=== PATIENT | male | born 1980 | race Hispanic/Latino ===

== ENCOUNTER 2019-08-30 18:08 | Inpatient (IN) | payer BC, OTHER ==
[~2019-08-30] VITALS: Ht 180.3 cm; Wt 108.1 kg
[2019-08-30] MEDS ORDERED: IOHEXOL 350 MG/ML 100ML INFUS..BTL IV ONE (20:58)
[2019-08-30] MEDS ORDERED: ERGOCALCIFEROL (VITAMIN D2) 50,000 UNIT CAPSULE PO ONE (21:45)
[2019-08-30] MEDS: CEFTRIAXONE SODIUM 1 GM IVP SCH (21:45)
[2019-08-30] MEDS ORDERED: DOXYCYCLINE 100MG+NS 250ML IV SCH (21:45)
[2019-08-30] MEDS ORDERED: ONDANSETRON HCL 4 MG/2 ML VIAL IV PRN (21:45)
[2019-08-30] MEDS ORDERED: ACETAMINOPHEN 325 MG TAB PO PRN ×2 (21:45)
[2019-08-30] MEDS ORDERED: CEFTRIAXONE SODIUM 1 GM ONE (22:05)
[2019-08-30] MEDS ORDERED: METHYLPREDNISOLONE SOD SUCC 40MG/ML 1ML ONE (22:05)
[2019-08-30] MEDS ORDERED: ERGOCALCIFEROL (VITAMIN D2) 50,000 UNIT CAPSULE ONE (22:05)
[2019-08-30] MEDS ORDERED: DOXYCYCLINE HYCLATE 100 MG TABLET PO ONE (22:38)
[2019-08-30] MEDS ORDERED: ALPRAZOLAM 0.25 MG TABLET PO PRN (22:53)
[2019-08-30] MEDS ORDERED: ALPRAZOLAM 0.25 MG TABLET ONE (22:58)
[2019-08-31] MEDS ORDERED: DOXYCYCLINE HYCLATE 100 MG TABLET PO ONE (08:56)
[2019-08-31] MEDS ORDERED: ZINC SULFATE 220 CAPSULE ONE ×2 (08:57→09:15)
[2019-08-31] MEDS ORDERED: METHYLPREDNISOLONE SOD SUCC 40MG/ML 1ML ONE ×3 (08:57→16:31)
[2019-08-31] MEDS ORDERED: ASCORBIC ACID 500 MG TAB ONE ×2 (08:57→09:14)
[2019-08-31] MEDS ORDERED: ENOXAPARIN SODIUM 40 MG/0.4 ML SYRINGE SQ ONE ×2 (08:58→09:15)
[2019-08-31] MEDS ORDERED: FAMOTIDINE/PF 20 MG/2 ML VIAL IV ONE ×2 (08:58→09:16)
[2019-08-31] MEDS ORDERED: CEFTRIAXONE SODIUM 1 GM ONE ×2 (08:58→09:15)
[2019-08-31] MEDS ORDERED: ZINC SULFATE 220 CAPSULE PO SCH (09:00)
[2019-08-31] MEDS: ENOXAPARIN SODIUM 40 MG/0.4 ML SYRINGE SQ SCH (09:00)
[2019-08-31] MEDS: FAMOTIDINE/PF 20 MG/2 ML VIAL IV SCH ×2 (09:00→21:00)
[2019-08-31] MEDS ORDERED: ENOXAPARIN SODIUM 40 MG/0.4 ML SYRINGE SQ SCH (09:00)
[2019-08-31] MEDS: METHYLPREDNISOLONE SOD SUCC 40MG/ML 1ML IVP SCH ×3 (09:00→21:00)
[2019-08-31] MEDS: CEFTRIAXONE SODIUM 1 GM IVP SCH ×2 (09:45→21:45)
[2019-09-01] MEDS: METHYLPREDNISOLONE SOD SUCC 40MG/ML 1ML IVP SCH ×2 (09:00→14:00)
[2019-09-01] MEDS: ASCORBIC ACID 500 MG TAB PO SCH (09:00)
[2019-09-01] MEDS: ENOXAPARIN SODIUM 40 MG/0.4 ML SYRINGE SQ SCH (09:00)
[2019-09-01] MEDS: FAMOTIDINE/PF 20 MG/2 ML VIAL IV SCH (09:00)
[2019-09-01] MEDS: CEFTRIAXONE SODIUM 1 GM IVP SCH (09:45)
[2019-09-01] MEDS ORDERED: ASCORBIC ACID 500 MG TAB ONE (10:43)
[2019-09-01] MEDS ORDERED: ENOXAPARIN SODIUM 60 MG/0.6 ML SQ ONE (10:43)
[2019-09-01] MEDS ORDERED: ZINC SULFATE 220 CAPSULE ONE (10:44)
--- NOTE | 2019-09-01 18:18 | NUR ---
EMERGENCY CONTACTS Sara De La Garza - mother -
--- NOTE | 2019-09-01 18:21 | NUR ---
INITIAL SW spoke with patient. He lives with 16 year old son. Emergency contact is mother, Sara De La Garza, [phone]. No home services. DME: glucometer (no insulin), nebulizer. Patient is able to complete ADL's independently and drives. PCP is Dr. Dale Dillard. Pharmacy is [facility] located on [address] [address] in [place]. DCP is home. Addendum: 09/01/19 at 1822 by ADDIS WALKER SS Amended: Links added.
[2019-09-01] MEDS ORDERED: DOXYCYCLINE HYCLATE 100 MG TABLET PO SCH (21:00)
[2019-09-01] MEDS ORDERED: METHYLPREDNISOLONE SOD SUCC 125MG/2ML VIAL ONE (21:33)
[2019-09-01] MEDS ORDERED: CEFTRIAXONE SODIUM 1 GM ONE (21:33)
[2019-09-01] MEDS ORDERED: FAMOTIDINE/PF 20 MG/2 ML VIAL IV ONE (21:33)
[2019-09-02] MEDS ORDERED: METHYLPREDNISOLONE SOD SUCC 125MG/2ML VIAL ONE (06:21)
[2019-09-02] MEDS: METHYLPREDNISOLONE SOD SUCC 40MG/ML 1ML IVP SCH ×4 (09:00→21:35)
[2019-09-02] MEDS: ASCORBIC ACID 500 MG TAB PO SCH (09:00)
[2019-09-02] MEDS ORDERED: ENOXAPARIN SODIUM 40 MG/0.4 ML SYRINGE SQ ONE (09:08)
[2019-09-02] MEDS ORDERED: ZINC SULFATE 220 CAPSULE ONE (09:08)
[2019-09-02] MEDS ORDERED: ASCORBIC ACID 500 MG TAB ONE (09:08)
[2019-09-02] MEDS ORDERED: FAMOTIDINE/PF 20 MG/2 ML VIAL IV ONE (09:09)
[2019-09-02] MEDS ORDERED: CEFTRIAXONE SODIUM 1 GM ONE (09:09)
[2019-09-02] MEDS ORDERED: DOXYCYCLINE HYCLATE 100 MG TABLET PO ONE (10:50)
[2019-09-02] MEDS: ZINC SULFATE 220 CAPSULE PO SCH (12:00)
[2019-09-02] MEDS ORDERED: GUAIFENESIN-DM 200/20 MG 10 ML ONE (13:28)
[2019-09-02] MEDS ORDERED: METHYLPREDNISOLONE SOD SUCC 40MG/ML 1ML ONE (15:22)
[2019-09-02] MEDS ORDERED: GLUCAGON 1MG KIT 1 MG ML IM PRN (16:00)
[2019-09-02] MEDS ORDERED: DEXTROSE 50%-WATER 50 ML DISP.SYRIN IV PRN (16:00)
[2019-09-02] MEDS: INSULIN HUMULIN R 100 UNIT/ML 3ML SQ SCH ×2 (16:30→21:40)
[2019-09-02 19:19] VITALS: BP 133/77; PULSE 72; RESP 20; TEMP 99
[2019-09-02] MEDS: CEFTRIAXONE SODIUM 1 GM IVP SCH ×2 (21:31→21:33)
[2019-09-02] MEDS: FAMOTIDINE/PF 20 MG/2 ML VIAL IV SCH (21:31)
[2019-09-02] MEDS: ENOXAPARIN SODIUM 120 MG/0.8ML SQ SCH (21:38)
[2019-09-02] MEDS: GUAIFENESIN-DM 200/20 MG 10 ML PO PRN (22:43)
[2019-09-03 00:15] VITALS: BP 135/74; PULSE 67; RESP 16; TEMP 97.9
[2019-09-03 03:18] VITALS: BP 133/73; PULSE 59; RESP 17; TEMP 98
--- NOTE | 2019-09-03 04:26 | NUR ---
Assessment Patient is in the bed resting. He is not showing any S/S of distress. Vitals are stable and he is being closely monitored.
[2019-09-03] MEDS: INSULIN HUMULIN R 100 UNIT/ML 3ML SQ SCH ×3 (06:09→16:29)
[2019-09-03 07:30] VITALS: BP 137/77; PULSE 58; RESP 22; TEMP 97.7
[2019-09-03] MEDS: METHYLPREDNISOLONE SOD SUCC 40MG/ML 1ML IVP SCH ×2 (09:08→14:19)
[2019-09-03] MEDS: FAMOTIDINE/PF 20 MG/2 ML VIAL IV SCH (09:08)
[2019-09-03] MEDS: ZINC SULFATE 220 CAPSULE PO SCH (09:09)
[2019-09-03] MEDS: ASCORBIC ACID 500 MG TAB PO SCH (09:09)
[2019-09-03] MEDS: ENOXAPARIN SODIUM 120 MG/0.8ML SQ SCH (09:09)
[2019-09-03] MEDS: CEFTRIAXONE SODIUM 1 GM IVP SCH (09:10)
[2019-09-03] MEDS: GUAIFENESIN-DM 200/20 MG 10 ML PO PRN (09:11)
[2019-09-03 11:00] VITALS: BP 125/76; PULSE 65; RESP 24; TEMP 98.9
[2019-09-03 16:00] VITALS: BP 117/80; PULSE 68; RESP 22; TEMP 98.8
== END 2019-09-03 19:00 | disposition home or self-care (01) | DRG 177 ==
LOC: EDH 18:08 → EDHIP 21:45 → 4CH 09-02 18:44
PROVIDERS: ADMIT Internal Medicine; ATTEND Internal Medicine
DX: U07.1 COVID-19 (principal); J12.89 Other viral pneumonia; J96.01 Acute respiratory failure with hypoxia; E11.65 Type 2 diabetes mellitus with hyperglycemia; E66.01 Morbid (severe) obesity due to excess calories; I10 Essential (primary) hypertension; E78.5 Hyperlipidemia, unspecified; Z68.34 Body mass index [BMI] 34.0-34.9, adult; Z79.01 Long term (current) use of anticoagulants

== ENCOUNTER 2019-09-04 14:08 | Emergency (ER) | payer OTHER ==
[~2019-09-04 14:08] MED LIST: APIX2.5T PO; DEXA6TAB PO
== END 2019-09-04 14:19 | disposition home or self-care (01) ==
LOC: EDH 14:08
DX: R20.2 Paresthesia of skin (principal); E11.9 Type 2 diabetes mellitus without complications; E78.5 Hyperlipidemia, unspecified; I10 Essential (primary) hypertension
CPT/HCPCS: 99281

== ENCOUNTER → 2021-03-09 | Outpatient (CLI) | payer OTHER ==
[~2021-03-09] MED LIST changes: +GADOTERATE MEGLUMINE 10 MMOL/20 ML VIAL IV ONE
== END | disposition home or self-care (01) ==
LOC: RAH 12:48
PROVIDERS: ATTEND Family Medicine
DX: G45.9 Transient cerebral ischemic attack, unspecified (principal)
CPT/HCPCS: 70553; A9575

== ENCOUNTER 2023-12-07 10:49 | Emergency (ER) | payer OTHER ==
[~2023-12-07] VITALS: Ht 180.3 cm; Wt 113.4 kg
[~2023-12-07 10:49] MED LIST changes: -GADOTERATE MEGLUMINE 10 MMOL/20 ML VIAL IV ONE
[2023-12-07] MEDS: ketOROlac 15MG/ML VIAL (15MG/ML) IM STA (11:25)
[2023-12-07] MEDS: HYDROcodone/APAP 5/325 1 TAB TABLET PO STA (11:25)
[2023-12-07 11:51] LABS: ADD UA MICROSCOPIC YES; APPEARANCE,URINE CLEAR (CLEAR); BILIRUBIN,URINE NEGATIVE (NEGATIVE); COLOR,URINE YELLOW (YELLOW); GLUCOSE, URINE (UA) >=1000 mg/dL (NEGATIVE); KETONES,URINE >=80 mg/dL (NEGATIVE); LEUKOCYTE ESTERASE ,URINE NEGATIVE Leu/uL (NEGATIVE); NITRATE,URINE NEGATIVE (NEGATIVE); PROTEIN,URINE 20 mg/dL (NEGATIVE); UROBILINOGEN,URINE 0.2 mg/dL (0.2-1.0)
[2023-12-07 11:52] LABS: BACTERIA,URINE RARE /HPF (None Seen); MUCUS,URINE RARE LPF (None Seen); SQUAMOUS EPITHELIAL CELL,UR FEW /HPF (0-2)
[2023-12-07 12:02] VITALS: BP 145/82; PULSE 79; RESP 14; TEMP 98.4; O2SAT 99
== END 2023-12-07 12:02 | disposition home or self-care (01) ==
LOC: EDH 10:49
DX: N43.3 Hydrocele, unspecified (principal); E11.9 Type 2 diabetes mellitus without complications; I10 Essential (primary) hypertension; Z79.01 Long term (current) use of anticoagulants; Z79.52 Long term (current) use of systemic steroids
CPT/HCPCS: 99283; 81001; 96372; J1885

== ENCOUNTER → 2024-02-16 | Outpatient (CLI) | payer OTHER ==
--- NOTE | 2024-02-16 11:11 | HMCIMG ---
MR SPINAL CANAL, LUMBAR WO CON HISTORY: Left lower extremity pain COMPARISON: None TECHNIQUE: MRI of the lumbar spine was performed utilizing multiple pulse sequences in axial , coronal and sagittal plane. Patient was not given contrast through intravenous route. FINDINGS: Endplate degenerative changes with disc space narrowing is seen at L3-4 level. No loss of vertebral height is seen. There is straightening of normal lumbar curvature which may be related to muscle spasm or positioning. Degenerative disc signals are present at T12-L1, L3-4, L4-5 and L5 levels. Visualized distal conus is unremarkable. At the T12-L1 level, there is spondylotic disc causing anterior thecal sac compression with bilateral lateral recess stenosis and minimal bilateral neural foraminal stenosis. The thecal sac measures approximately 8.4 mm in its anterior posterior dimension. At the L3-4 level, there is spondylotic disc with bilateral ligamentum flavum causing anterior thecal sac compression with bilateral lateral recess stenosis and mild bilateral neural foraminal stenosis. The thecal sac measures approximately 5.8 mm in its anterior posterior dimension. At the L4-5 level, there is spondylotic disc with annular disc bulge and bilateral ligamentum flavum hypertrophy causing anterior thecal sac compression with bilateral lateral recess stenosis and mild bilateral neural foraminal stenosis. The thecal sac measures approximately 4.9 mm in its anterior posterior dimension. At the L5-S1 level, there is spondylotic disc causing anterior thecal sac compression with bilateral lateral recess stenosis and bilateral neural foraminal stenosis. The thecal sac measures approximately 6.9 mm in its anterior posterior dimension. IMPRESSION: 1. DJD with lumbar spine spondylosis as described above.
== END | disposition home or self-care (01) ==
LOC: RAH 08:53
PROVIDERS: ATTEND Student in an Organized Health Care Education/Training Program
DX: M47.27 Other spondylosis with radiculopathy, lumbosacral region (principal); M48.07 Spinal stenosis, lumbosacral region; M51.16 Intervertebral disc disorders with radiculopathy, lumbar region
CPT/HCPCS: 72148